=== PATIENT | male | born 2000 | race African-American/Black ===

== ENCOUNTER 2021-01-13 00:35 | Emergency (ER) | payer BC ==
[2021-01-13] MEDS ORDERED: PRILOSEC 20MG20 MG PO (01:33)
[2021-01-13] MEDS ORDERED: PROVENTIL0.09 MG/A1 IH (01:33)
[2021-01-13 02:01] LABS: BASO # 0.05 (0.02-0.10); EOS # 0.34 (0.04-0.40); EOS % 6.5 % (0.0-4.0); HEMOGLOBIN 13.9 g/dL (13.5-18.0); LYMPH# 1.32 (1.50-4.00); MEAN CELL VOLUME 89 fl (78-100); MEAN CORPUSCULAR HEMOGLOBIN 29 pg (27-31); MEAN CORPUSCULAR HGB CONC 33 g/dL (33-37); MONO # 0.36 (0.20-0.80); NEU # 3.17 (1.40-6.50); PLATELET COUNT 187 K/mm3 (130-400); RED BLOOD COUNT 4.73 M/mm3 (4.20-5.60); RED CELL DISTRIBUTION WIDTH 11.9 % (11.5-14.5); WHITE BLOOD COUNT 5.2 K/mm3 (4.8-10.8)
[2021-01-13 02:09] LABS: ALBUMIN 4.2 g/dL (3.5-5.0); SODIUM 141 mmol/L (136-145)
[2021-01-13 02:10] LABS: CALCIUM 9.1 mg/dL (8.3-10.5)
[2021-01-13 02:11] LABS: GLUCOSE 93 mg/dL (75-110); TOTAL PROTEIN 7.6 g/dL (6.4-8.3)
[2021-01-13 02:12] LABS: CARBON DIOXIDE 25 mmol/L (22-29)
[2021-01-13 02:13] LABS: TOTAL BILIRUBIN 0.7 mg/dL (0.2-1.2)
[2021-01-13 02:16] LABS: AST-SGOT 20 U/L (5-34)
[2021-01-13 02:18] LABS: ALT/SGPT 20 U/L (0-55)
[2021-01-13 02:25] LABS: D-DIMER 2.57 mg/L FEU (0.15-0.50); TROPONIN-I < 0.03 ng/mL (<0.030)
[2021-01-13 05:05] VITALS: BP 130/70
== END 2021-01-13 05:05 | disposition home or self-care (01) ==
LOC: ED 00:35
PROVIDERS: Nurse Practitioner Family
DX: R00.2 Palpitations (principal); R55 Syncope and collapse; J45.909 Unspecified asthma, uncomplicated; F17.290 Nicotine dependence, other tobacco product, uncomplicated; Z79.899 Other long term (current) drug therapy
CPT/HCPCS: Q9967